=== PATIENT | male | born 1960 | race American Indian/Alaskan Native ===

== ENCOUNTER 2017-02-22 08:23 | Emergency (ER) | payer SELFPAY ==
[2017-02-22 08:40] VITALS: BP 127/82
--- NOTE | 2017-02-22 09:33 | XRay Report ---
CHEST TWO VIEWS: 02/22/17 08:23:00 CLINICAL: Upper respiratory infection. COMPARISON: None FINDINGS: Extensive bilateral upper lobe alveolar opacities along with reticular interstitial opacities and superior retraction of the masood. Widening of the mediastinum and widening of the apical and upper lobe pleural spaces.Suspect bilateral hilar lymphadenopathy. The lower lungs are clear. No pleural effusion. The heart is normal size.The bones and soft tissues are unremarkable. IMPRESSION: Extensive bilateral upper lobe alveolar and interstitial lung disease along with adenopathy, mediastinal widening and pleural space widening. The pattern is most consistent with chronic sarcoidosis with a likely superimposed acute component.
== END 2017-02-22 08:50 | disposition left against medical advice (07) ==
LOC: ED 08:23
DX: Z53.21 Procedure and treatment not carried out due to patient leaving prior to being seen by health care provider (principal)
CPT/HCPCS: 71046; 93005; 93010

== ENCOUNTER 2018-02-16 13:19 | Outpatient (CLI) | payer OTHER ==
[2018-02-16] MEDS ORDERED: PROVENTIL IH ONE (14:20)
== END 2018-02-16 13:20 | disposition home or self-care (01) ==
LOC: PF 13:19
PROVIDERS: ATTEND Internal Medicine
DX: Z02.71 Encounter for disability determination (principal); J45.909 Unspecified asthma, uncomplicated; D86.9 Sarcoidosis, unspecified
CPT/HCPCS: 94060; 94640; 94729

== ENCOUNTER 2020-03-20 07:19 | Emergency (ER) | payer OTHER | END 2020-03-20 08:30 | LOC: ED 07:19 | DX: Z00.8 Encounter for other general examination (principal); Z53.21 Procedure and treatment not carried out due to patient leaving prior to being seen by health care provider ==